=== PATIENT | female | born 1955 | race Caucasian/White ===

== ENCOUNTER → 2017-05-22 | Outpatient (CLI) | payer BC ==
[~2017-05-22] MED LIST: ADVAIR IH; EFFEXOR XR75 MG PO; HCTZ/LISINOPRIL1 TA1 PO; NORCO 325 MG-7.1 TAB PO
== END ==
LOC: MC.RAD 08:53
DX: Z12.31 Encounter for screening mammogram for malignant neoplasm of breast (principal)

== ENCOUNTER → 2017-06-21 | Outpatient (CLI) | payer BC | LOC: COL.RAD 07:54 | DX: M25.551 Pain in right hip (principal) | CPT/HCPCS: J3301; Q9967 ==

== ENCOUNTER → 2018-03-10 | Outpatient (CLI) | payer BC | LOC: COL.RAD 12:22 | DX: M51.27 Other intervertebral disc displacement, lumbosacral region (principal); M48.07 Spinal stenosis, lumbosacral region ==

== ENCOUNTER → 2018-03-31 | Outpatient (CLI) | payer BC | LOC: COL.LAB 11:56 | DX: Z11.2 Encounter for screening for other bacterial diseases (principal) ==

== ENCOUNTER → 2018-08-12 | Outpatient (CLI) | payer BC | LOC: MC.RAD 10:31 | DX: Z12.31 Encounter for screening mammogram for malignant neoplasm of breast (principal) ==

== ENCOUNTER → 2018-09-15 | Outpatient (CLI) | payer BC | LOC: COL.LAB 10:20 | DX: Z01.812 Encounter for preprocedural laboratory examination (principal) ==

== ENCOUNTER → 2021-01-17 | Outpatient (CLI) | payer BC | LOC: MC.RAD 01-06 09:30 | DX: Z12.31 Encounter for screening mammogram for malignant neoplasm of breast (principal) ==

== ENCOUNTER → 2021-08-11 | Outpatient (CLI) | payer MEDICARE, BC | LOC: COL.VAS 14:27 | DX: I08.0 Rheumatic disorders of both mitral and aortic valves (principal) ==

== ENCOUNTER 2022-01-15 16:58 | Emergency (ER) | payer MEDICARE, BC ==
[~2022-01-15] VITALS: Ht 170.2 cm; Wt 100.9 kg
[2022-01-15 17:07] VITALS: TEMP 98.2
[2022-01-15] MEDS ORDERED: AMOXICILLIN 50500 MG PO ×2 (17:35)
[2022-01-15] MEDS ORDERED: ZITHROMAX Z PA250 MG PO (18:06)
[2022-01-15 18:14] VITALS: BP 150/69; PULSE 70
== END 2022-01-15 18:14 | disposition home or self-care (01) ==
LOC: COL.ER 16:58
DX: S01.81XA Laceration without foreign body of other part of head, initial encounter (principal); S01.511A Laceration without foreign body of lip, initial encounter; X58.XXXA Exposure to other specified factors, initial encounter; Z88.0 Allergy status to penicillin

== ENCOUNTER → 2022-01-21 | Outpatient (CLI) | payer MEDICARE, BC ==
[~2022-01-21] MED LIST changes: +AMOXICILLIN 50500 MG PO; +ZITHROMAX Z PA250 MG PO
[2022-01-21 09:53] VITALS: BP 143/80; PULSE 68; TEMP 97.7
== END ==
LOC: COL.ER 09:44
DX: Z48.02 Encounter for removal of sutures (principal)

== ENCOUNTER → 2022-11-22 | Outpatient (CLI) | payer MEDICARE, BC | LOC: MC.RAD 09:19 | DX: Z12.31 Encounter for screening mammogram for malignant neoplasm of breast (principal) ==

== ENCOUNTER → 2023-11-25 | Outpatient (CLI) | payer MEDICARE | LOC: MC.RAD 08:08 | DX: Z12.31 Encounter for screening mammogram for malignant neoplasm of breast (principal) ==